=== PATIENT | male | born 1965 | race Caucasian/White ===

== ENCOUNTER 2016-11-03 15:08 | Emergency (ER) | payer OTHER ==
[2016-11-03] MEDS ORDERED: Aspirin Low Dose CHEW TAB* 81 MG PO ONE (15:40)
--- NOTE | 2016-11-03 16:10 | RAD ---
INDICATION: Chest pain COMPARISON: December 12, 2015 TECHNIQUE: An AP portable view obtained at 1545 hours is submitted. FINDINGS: Bones/Soft Tissues: There are no acute bony findings. Cardiomediastinal: The cardiomediastinal silhouette is normal. Lungs: There are no infiltrates. Pleura: There are no pleural effusions. Other: None IMPRESSION: NO ACTIVE DISEASE.
[2016-11-03 16:20] LABS: Hematocrit 43 % (42-52); Hemoglobin 14.6 g/dl (14.0-18.0); Mean Corpuscular HGB Conc 34 g/dl (31-36); Mean Corpuscular Hemoglobin 31 pg (27-31); Mean Corpuscular Volume 91 fL (80-94); Mean Platelet Volume 8 um3 (7.4-10.4); Red Cell Distribution Width 13 % (10.5-15)
[2016-11-03 16:49] LABS: Albumin 4.5 g/dL (3.2-5.2); BUN/Creatinine Ratio 20.7 (8-20); Calcium 9.6 mg/dL (8.6-10.3); EGFR African American 112.9 (>60); EGFR Non-African American 87.8 (>60); Potassium 4.5 mmol/L (3.5-5.0); Total Bilirubin 0.5 mg/dL (0.2-1.0); Total Protein 7.5 g/dL (6.4-8.9)
[2016-11-03 18:27] VITALS: BP 156/85
--- NOTE | 2016-11-04 08:29 | ED ---
An Hill Matthew, scribed for Leland Machado MD on 11/03/16 at 1543 . HPI Chest Pain - HPI Summary HPI Summary: A 50 y/o male presents to the ED with mid sternal chest pain since this afternoon. The pain is described as pressure. His symptoms began after he returned inside from shoveling out the driveway. Prior to the pain, the patient went to his PCP to have a prescription refilled and his BP was running high at that time. He then drank a monster energy drink after leaving his PCP's office. Associated symptoms include lightheadedness - described like being "drunk", and SOB. He induced vomiting to try and relief the pain without success. Ambulation does not make the pain worse. The chest pain pressure increases with deep breaths. The patient also took Maalox without relief. PMHx: HTN, GERD - History of Current Complaint Chief Complaint: EDChestPainROMI Time Seen by Provider: 11/03/16 15:29 Hx Obtained From: Patient Onset/Duration: Started Hours Ago, Atraumatic, Still Present Timing: Constant Initial Severity: Moderate Current Severity: Moderate Pain Intensity: 6 Pain Scale Used: 0-10 Numeric Chest Pain Location: Mid Sternal Chest Pain Radiates: No Character: Pressure/Squeezing Associated Signs and Symptoms: Positive: Chest Pain, Shortness of Breath, Lightheadedness - Allergy/Home Medications Allergies/Adverse Reactions: Allergies Allergy/AdvReac Type Severity Reaction Status Date / Time No Known Allergies Allergy Verified 11/03/16 15:10 PMH/Surg Hx/FS Hx/Imm Hx Cardiovascular History: Reports: Hx Hypertension Respiratory History: Denies: Hx Asthma, Hx Pneumonia, Hx Pulmonary Embolism GI History: Reports: Hx Gastroesophageal Reflux Disease, Hx Ulcer - gerd Sensory History: Reports: Hx Contacts or Glasses - GLASSES Denies: Hx Hearing Aid Opthamlomology History: Reports: Hx Contacts or Glasses - GLASSES - Surgical History Surgery Procedure, Year, and Place: SEVERAL SETS OF TUBES FOR EARS. RIGHT EAR BONE SURGERY. penis scar tissue as child AND AGAIN ADULT. CARDIAC CATH. COLONOSCOPY Hx Anesthesia Reactions: No - Immunization History Date of Tetanus Vaccine: Unknown Infectious Disease History: No Infectious Disease History: Denies: History Other Infectious Disease, Traveled Outside the [place] in Last 30 Days - Family History Known Family History: Positive: Cardiac Disease, Hypertension, Diabetes - Social History Alcohol Use: Rare Substance Use Type: Reports: None Hx Tobacco Use: Yes Smoking Status (MU): Former Smoker Review of Systems Constitutional: Negative Eyes: Negative ENT: Negative Positive: Chest Pain Positive: Shortness Of Breath Gastrointestinal: Negative Genitourinary: Negative Musculoskeletal: Negative Skin: Negative Neurological: Other - lightheadedness Psychological: Normal All Other Systems Reviewed And Are Negative: Yes Physical Exam Vital Signs On Initial Exam: Initial Vitals Temp Pulse Resp BP Pulse Ox 99.0 F 79 18 159/93 100 11/03/16 15:10 11/03/16 15:10 11/03/16 15:10 11/03/16 15:10 11/03/16 15:10 Appearance: Positive: Obese Skin: Positive: Other - nuris appearance Head/Face: Positive: Normal Head/Face Inspection Eyes: Positive: Normal ENT: Positive: Normal ENT inspection Neck: Positive: Supple, Nontender Respiratory/Lung Sounds: Positive: Clear to Auscultation, Breath Sounds Present Cardiovascular: Positive: RRR, Pulses are Symmetrical in both Upper and Lower Extremities Abdomen Description: Positive: Nontender, Soft Bowel Sounds: Positive: Present Musculoskeletal: Positive: Normal Neurological: Positive: Alert, Oriented to Person Place, Time Psychiatric: Positive: Affect/Mood Appropriate Diagnostics - Vital Signs Vital Signs Temp Pulse Resp BP Pulse Ox 11/03/16 15:10 99.0 F 79 18 159/93 100 - Laboratory Lab Results: Lab Results 11/03/16 11/03/16 11/03/16 Range/Units 16:08 16:08 16:08 WBC 8.0 (3.5-10.8) 10^3/ul RBC 4.70 (4.0-5.4) 10^6/ul Hgb 14.6 (14.0-18.0) g/dl Hct 43 (42-52) % MCV 91 (80-94) fL MCH 31 (27-31) pg MCHC 34 (31-36) g/dl RDW 13 (10.5-15) % Plt Count 230 (150-450) 10^3/ul MPV 8 (7.4-10.4) um3 Neut % (Auto) 74.3 (38-83) % Lymph % (Auto) 12.6 L (25-47) % Woods % (Auto) 11.3 H (1-9) % Eos % (Auto) 0.8 (0-6) % Baso % (Auto) 1.0 (0-2) % Absolute Neuts (auto) 5.9 (1.5-7.7) 10^3/ul Absolute Lymphs (auto) 1.0 (1.0-4.8) 10^3/ul Absolute Monos (auto) 0.9 H (0-0.8) 10^3/ul Absolute Eos (auto) 0.1 (0-0.6) 10^3/ul Absolute Basos (auto) 0.1 (0-0.2) 10^3/ul Absolute Nucleated RBC 0 10^3/ul Nucleated RBC % 0 INR (Anticoag Therapy) 0.96 (0.89-1.11) D-Dimer, Quantitative < 200 (Less Than 230) ng/mL Sodium 136 (133-145) mmol/L Potassium 4.5 (3.5-5.0) mmol/L Chloride 101 (101-111) mmol/L Carbon Dioxide 29 (22-32) mmol/L Anion Gap 6 (2-11) mmol/L BUN 19 (6-24) mg/dL Creatinine 0.92 (0.67-1.17) mg/dL Est GFR ( Amer) 112.9 (>60) Est GFR (Non-Af Amer) 87.8 (>60) BUN/Creatinine Ratio 20.7 H (8-20) Glucose 94 (70-100) mg/dL Lactic Acid (0.5-2.0) mmol/L Calcium 9.6 (8.6-10.3) mg/dL Total Bilirubin 0.50 (0.2-1.0) mg/dL AST 16 (13-39) U/L ALT 17 (7-52) U/L Alkaline Phosphatase 46 (34-104) U/L Troponin I 0.00 (<0.04) ng/mL Total Protein 7.5 (6.4-8.9) g/dL Albumin 4.5 (3.2-5.2) g/dL Globulin 3.0 (2-4) g/dL Albumin/Globulin Ratio 1.5 (1-3) 11/03/16 Range/Units 16:08 WBC (3.5-10.8) 10^3/ul RBC (4.0-5.4) 10^6/ul Hgb (14.0-18.0) g/dl Hct (42-52) % MCV (80-94) fL MCH (27-31) pg MCHC (31-36) g/dl RDW (10.5-15) % Plt Count (150-450) 10^3/ul MPV (7.4-10.4) um3 Neut % (Auto) (38-83) % Lymph % (Auto) (25-47) % Woods % (Auto) (1-9) % Eos % (Auto) (0-6) % Baso % (Auto) (0-2) % Absolute Neuts (auto) (1.5-7.7) 10^3/ul Absolute Lymphs (auto) (1.0-4.8) 10^3/ul Absolute Monos (auto) (0-0.8) 10^3/ul Absolute Eos (auto) (0-0.6) 10^3/ul Absolute Basos (auto) (0-0.2) 10^3/ul Absolute Nucleated RBC 10^3/ul Nucleated RBC % INR (Anticoag Therapy) (0.89-1.11) D-Dimer, Quantitative (Less Than 230) ng/mL Sodium (133-145) mmol/L Potassium (3.5-5.0) mmol/L Chloride (101-111) mmol/L Carbon Dioxide (22-32) mmol/L Anion Gap (2-11) mmol/L BUN (6-24) mg/dL Creatinine (0.67-1.17) mg/dL Est GFR ( Amer) (>60) Est GFR (Non-Af Amer) (>60) BUN/Creatinine Ratio (8-20) Glucose (70-100) mg/dL Lactic Acid 1.3 (0.5-2.0) mmol/L Calcium (8.6-10.3) mg/dL Total Bilirubin (0.2-1.0) mg/dL AST (13-39) U/L ALT (7-52) U/L Alkaline Phosphatase (34-104) U/L Troponin I (<0.04) ng/mL Total Protein (6.4-8.9) g/dL Albumin (3.2-5.2) g/dL Globulin (2-4) g/dL Albumin/Globulin Ratio (1-3) Result Diagrams: 11/03/16 16:08 11/03/16 16:08 Lab Statement: Any lab studies that have been ordered have been reviewed, and results considered in the medical decision making process. - Radiology CXR Xray Interpretation: No Acute Changes - IMPRESSION: NO ACTIVE DISEASE. Radiology Interpretation Completed By: Radiologist - EKG 15:18 Cardiac Rate: NL - 77 bpm EKG Rhythm: Sinus Rhythm Chest Pain Course/Dx - Course Assessment/Plan: A 50 y/o male presents to the ED with mid sternal chest pain since this afternoon. The pain is described as pressure. His symptoms began after he returned inside from shoveling out the driveway. The chest pressure increased with deep breaths. Labs were reviewed and the first troponin was measured at 0.00. The patient refused to stay for the second troponin and wanted to go home. EKG showed NSR at 77 bpm. The patients MD Calc score was 13. The patient was discharged home to follow-up with his PCP. - Diagnoses Provider Diagnoses: Chest pain Discharge - Discharge Plan Condition: Stable Disposition: HOME Patient Education Materials: Chest Pain (ED) Referrals: Jackie Leo MD [Primary Care Provider] - 3 Days Additional Instructions: Please follow-up with your primary care physician in 3 days. The documentation as recorded by the An rush Matthew accurately reflects the service I personally performed and the decisions made by , Leland Machado MD.
== END 2016-11-03 18:26 | disposition home or self-care (01) ==
LOC: ED 15:08
DX: R07.9 Chest pain, unspecified (principal); I10 Essential (primary) hypertension; K21.9 Gastro-esophageal reflux disease without esophagitis; Z87.891 Personal history of nicotine dependence
CPT/HCPCS: 36415; 71010; 80053; 83605; 84484; 85025; 85379; 85610; 93005; 99283; A9270-GY

== ENCOUNTER 2017-12-05 20:08 | Observation (INO) | payer OTHER ==
[2017-12-05] MEDS ORDERED: oxyCODONE/Acetamin 5/325 MG* TAB PO ONE (20:52)
[2017-12-05] MEDS ORDERED: fentaNYL* 50 MCG/ML 2 ML VIAL (100 MCG VIAL) IV SLOW PU ONE (21:05)
[2017-12-05] MEDS ORDERED: Metoclopramide IV* 5 MG/ML 2 ML VIAL IV SLOW PU ONE (21:06)
[2017-12-05] MEDS ORDERED: Midazolam* 1 MG/ML 5 ML VIAL (5 MG) ONE (21:19)
[2017-12-05] MEDS ORDERED: fentaNYL* 50 MCG/ML 2 ML VIAL (100 MCG VIAL) ONE (21:20)
[2017-12-05] MEDS ORDERED: Naloxone* 0.4 MG/ML 1 ML VIAL ONE (21:21)
--- NOTE | 2017-12-05 21:28 | RAD ---
INDICATION: Right knee injury. TECHNIQUE: 2 views of the right knee were obtained. FINDINGS: There is dislocation of the knee with the tibia displaced anterior relative to the femur. The bones are slightly overriding. In addition there is a probable fracture of the fibular head which is not well-defined. There are also 2 bony densities which project lateral to the lateral femoral condyle measuring 1.6 and 1.4 cm each most consistent with fracture fragments age indeterminate. IMPRESSION: 1. DISLOCATION OF THE KNEE DESCRIBED. 2. PROBABLE FRACTURE OF THE FIBULAR HEAD NOT WELL-DEFINED. 3. THERE ARE 2 FRACTURE FRAGMENTS PRESENT LATERAL TO THE LATERAL FEMORAL CONDYLE, AGE INDETERMINATE.
--- NOTE | 2017-12-05 21:30 | RAD ---
INDICATION: Right lower leg injury. TECHNIQUE: 2 views of the right lower leg were obtained. FINDINGS: There is dislocation of the knee with the distal femur and tibia overriding. There are 2 bony densities lateral to the lateral femoral condyle most consistent with fracture fragments, age indeterminate. IMPRESSION: 1. DISLOCATION OF THE KNEE. 2. NO ADDITIONAL FRACTURE IS SEEN.
[2017-12-05 21:46] LABS: ABS Basophils 0.1 10^3/ul (0-0.2); ABS Eosinophils 0 10^3/ul (0-0.6); ABS Lymphocytes 0.9 10^3/ul (1.0-4.8); ABS Monocytes 0.7 10^3/ul (0-0.8); ABS Neutrophils 9.8 10^3/ul (1.5-7.7); ABS Nucleated RBC 0 10^3/ul; Eosinophil % 0.3 % (0-6); Hematocrit 41 % (42-52); Hemoglobin 14.2 g/dl (14.0-18.0); Lymphocyte % 7.5 % (25-47); Mean Corpuscular HGB Conc 35 g/dl (31-36); Mean Corpuscular Hemoglobin 32 pg (27-31); Mean Corpuscular Volume 91 fL (80-94); Mean Platelet Volume 7.8 um3 (7.4-10.4); Nucleated Red Blood Cells % 0; Platelet Count 262 10^3/ul (150-450); Red Cell Distribution Width 14 % (10.5-15); White Blood Count 11.5 10^3/ul (3.5-10.8)
[2017-12-05 22:00] LABS: INR 0.96 (0.77-1.02)
[2017-12-05 22:03] LABS: EGFR Non-African American 77.6 (>60)
[2017-12-05] MEDS ORDERED: Iohexol 350* (CONTRAST) 500 ML MDV IV ONE (22:36)
[2017-12-05 23:06] LABS: Urine Appearance Clear; Urine Blood Negative (Negative); Urine Color Yellow; Urine Ketones Negative (Negative); Urine Protein Negative (Negative); Urine Specific Gravity 1.024 (1.010-1.030); Urine Urobilinogen Negative (Negative)
[2017-12-06] MEDS ORDERED: Iohexol 350* (CONTRAST) 500 ML MDV IV ONE (01:31)
[2017-12-06] MEDS ORDERED: oxyCODONE/Acetamin 5/325 MG* TAB PO PRN (01:34)
--- NOTE | 2017-12-06 05:58 | ED ---
Ken Hill Thomas, scribed for Augustin Lombardo MD on 12/05/17 at 2101 . Lower Extremity - HPI Summary HPI Summary: The patient is a 51 year old male complaining of pain and deformity to his right knee status post slipping and falling on water today at 18:30. He denies pain to his right foot and right hip. He last ate at approximately 18:00. - History of Current Complaint Chief Complaint: EDExtremityLower Stated Complaint: RT LEG INJURY Time Seen by Provider: 12/05/17 20:47 Hx Obtained From: Patient Mechanism Of Injury: Fall From A Standing Position Onset/Duration: Still Present Severity Currently: Moderate Pain Intensity: 7 Pain Scale Used: 0-10 Numeric Timing: Constant Location: Is Discrete @ - right knee Associated Signs And Symptoms: Positive: Negative Aggravating Factor(s): Movement Alleviating Factor(s): Nothing - Allergies/Home Medications Allergies/Adverse Reactions: Allergies Allergy/AdvReac Type Severity Reaction Status Date / Time No Known Allergies Allergy Verified 12/05/17 20:39 Home Medications: Home Medications Betamethasone Dip 0.05% ON(NF) [Betamethasone Dipr 0.05% OINT(NF)] 1 applic TOPICAL DAILY 12/05/17 [History Confirmed 12/05/17] Ibuprofen TAB* [Motrin TAB* 800 MG] 800 mg PO TID PRN 12/05/17 [History Confirmed 12/05/17] Lisinopril TAB* [Prinivil TAB*] 5 mg PO DAILY 12/05/17 [History Confirmed ] Pantoprazole TAB (NF) [Protonix TAB (NF)] 40 mg PO DAILY 12/05/17 [History Confirmed 12/05/17] Sertraline* [Zoloft*] 50 mg PO DAILY 12/05/17 [History Confirmed 12/05/17] PMH/Surg Hx/FS Hx/Imm Hx Cardiovascular History: Reports: Hx Hypertension Respiratory History: Denies: Hx Asthma, Hx Pneumonia, Hx Pulmonary Embolism GI History: Reports: Hx Gastroesophageal Reflux Disease, Hx Ulcer - gerd Sensory History: Reports: Hx Contacts or Glasses - GLASSES Denies: Hx Hearing Aid Opthamlomology History: Reports: Hx Contacts or Glasses - GLASSES - Surgical History Surgery Procedure, Year, and Place: SEVERAL SETS OF TUBES FOR EARS. RIGHT EAR BONE SURGERY. penis scar tissue as child AND AGAIN ADULT. CARDIAC CATH. COLONOSCOPY Hx Anesthesia Reactions: No - Immunization History Date of Tetanus Vaccine: Unknown Infectious Disease History: No Infectious Disease History: Denies: History Other Infectious Disease, Traveled Outside the [place] in Last 30 Days - Family History Known Family History: Positive: Cardiac Disease, Hypertension, Diabetes - Social History Alcohol Use: Rare Substance Use Type: Reports: None Hx Tobacco Use: Yes Smoking Status (MU): Former Smoker Review of Systems Negative: Fever Positive: Other - Right knee pain; NEGATIVE: right hip pain, right knee pain All Other Systems Reviewed And Are Negative: Yes Physical Exam - Summary Physical Exam Summary: VITAL SIGNS: Reviewed. GENERAL: Patient is a morbidly obese male who is lying comfortable in the stretcher. Patient is not in any acute respiratory distress. HEAD AND FACE: No signs of trauma. No ecchymosis, hematomas or skull depressions. No sinus tenderness. EYES: PERRLA, EOMI x 2, No injected conjunctiva, no nystagmus. EARS: Hearing grossly intact. Ear canals and tympanic membranes are within normal limits. MOUTH: Oropharynx within normal limits. NECK: Supple, trachea is midline, no adenopathy, no JVD, no carotid bruit, no c- spine tenderness, neck with full ROM. CHEST: Symmetric, no tenderness at palpation LUNGS: Clear to auscultation bilaterally. No wheezing or crackles. CVS: Regular rate and rhythm, S1 and S2 present, no murmurs or gallops appreciated. ABDOMEN: Soft, non-tender. No signs of distention. No rebound no guarding, and no masses palpated. Bowel sounds are normal. EXTREMITIES: He has tenderness to the right knee. He has deformity of the knee. He has good dorsalis pedis pulses and good posterior tibialis pulses. Otherwise , FROM in all other major joints, no edema, no cyanosis or clubbing. NEURO: Alert and oriented x 3. No acute neurological deficits. Speech is normal and follows commands. SKIN: Dry and warm Triage Information Reviewed: Yes Vital Signs On Initial Exam: Initial Vitals Temp Pulse Resp BP Pulse Ox 98.5 F 83 13 183/96 98 12/05/17 20:25 12/05/17 20:25 12/05/17 20:25 12/05/17 20:25 12/05/17 20:25 Vital Signs Reviewed: Yes Procedures - Procedure Summary Procedure Summary: MODERATE SEDATION PROCEDURE NOTE: The patient signed consent. We followed the moderate sedation protocol. The patient was given Versed 5mg and Fentanyl 100 mg. Prior to this, he was given Reglan 10 mg. Moderate sedation was achieved for the reduction. There was no complications with the moderate sedation. No reversal agent was used. REDUCTION OF THE KNEE PROCEDURE NOTE: Traction and counter-traction was used. The right knee was reduced. Post- reduction x-ray shows good alignment of an avulsion fracture of the proximal fibula. IV Access Procedure Note: IV 18 gauge using ultrasound guidance. Placed with the left bacilic vein. Diagnostics - Vital Signs Vital Signs Temp Pulse Resp BP Pulse Ox 12/05/17 20:25 98.5 F 83 13 183/96 98 - Laboratory Result Diagrams: 12/05/17 21:30 12/05/17 23:43 Lab Statement: Any lab studies that have been ordered have been reviewed, and results considered in the medical decision making process. - Radiology Knee XR 20:51 Xray Interpretation: Positive (See Comments) - IMPRESSION: 1. DISLOCATION OF THE KNEE DESCRIBED. 2. PROBABLE FRACTURE OF THE FIBULAR HEAD NOT WELL- DEFINED. 3. THERE ARE 2 FRACTURE FRAGMENTS PRESENT LATERAL TO THE LATERAL FEMORAL CONDYLE, AGE INDETERMINATE. Dr. Lombardo has reviewed this report. Radiology Interpretation Completed By: Radiologist Lower Leg Right XR 20:52 Xray Interpretation: Positive (See Comments) - IMPRESSION: 1. DISLOCATION OF THE KNEE. 2. NO ADDITIONAL FRACTURE IS SEEN. Dr. Lombardo has reviewed this report. Radiology Interpretation Completed By: Radiologist Post-reduction Knee XR Xray Interpretation: Positive (See Comments) - There is good alignment. Avulsion fracture of the fibular head with two small bone fragments. Radiology Interpretation Completed By: ED Physician - CT CTA Lower Extremity CT Interpretation: Positive (See Comments) - Impression: Patent main visualized arteries of right lower extremity through level of foot without evidence for pseudoaneurysm, dissection, or active contrast extravasation. Acute comminated fracture fibular head with fragments displaced 6 cm superiorly into lateral knee soft tissues, which are swollen. Dr. Lombardo has reviewed this report. CT Interpretation Completed By: Radiologist Lower Extremity Course/Dx - Course Assessment/Plan: The patient is a 51 year old male complaining of pain and deformity to his right knee status post slipping and falling on water today at 18:30. In the ED course, the patient was given Percocet. A Knee XR was obtained that shows 1. DISLOCATION OF THE KNEE. 2. PROBABLE FRACTURE OF THE FIBULAR HEAD NOT WELL-DEFINED. 3. THERE ARE 2 FRACTURE FRAGMENTS PRESENT LATERAL TO THE LATERAL FEMORAL CONDYLE, AGE INDETERMINATE. Moderate sedation was done, and the ankle was reduced. Post-reduction Knee XR shows good alignment and avulsion fracture of the fibular head with two small bone fragments. I obtained IV access using ultrasoudn guidance. I consulted with Dr. Addison, orthopedics, who tells me that the patient needs an angiogram of the right lower extremity to rule out vascular injury. Dr. Addison [place] [facility] - Diagnoses Provider Diagnoses: Dislocation of right knee - Physician Notifications Discussed Care Of Patient With: Lise Addison Time Discussed With Above Provider: 22:34 Instructed by Provider To: Other - I consulted with Dr. Addison, orthopedics, who tells me that the patient needs an angiogram of the right lower extremity to rule out vascular injury. Dr. Addison [place] [facility]charge - Sign-Out/Discharge Documenting (check all that apply): Discharge - The patient is admitted [place] [facility] [place] Addison - Discharge Plan Condition: Stable Disposition: ADMITTED TO [facility] documentation as recorded by the Ken rush Thomas accurately reflects the service I personally performed and the decisions made by me, Augustin Lombardo MD.
[2017-12-06 07:35] VITALS: BP 148/64
--- NOTE | 2017-12-06 07:56 | RAD ---
HISTORY: Post reduction COMPARISONS: December 05, 2017 at 8:00 PM VIEWS: 4, frontal, lateral, and axial views of the right knee at 9:03 PM. FINDINGS: BONE DENSITY: Normal. BONES: Again noted is a probable nondisplaced fracture of the fibular head. Again noted are fragments lateral to the femoral condyle which may reflect an age-indeterminate avulsion injury. JOINTS: There is no arthropathy. ALIGNMENT: There is been interval reduction of the femoral-tibial dislocation. The alignment is near-anatomic. SOFT TISSUES: Unremarkable. OTHER FINDINGS: None. IMPRESSION: 1. INTERVAL REDUCTION OF RIGHT KNEE DISLOCATION. 2. PROBABLE FRACTURE OF THE FIBULAR HEAD. 3. AGAIN NOTED ARE BONE FRAGMENTS LATERAL TO THE FEMORAL CONDYLE SYSTEM WITH AN AGE-INDETERMINATE AVULSION INJURY.
--- NOTE | 2017-12-06 08:18 | RAD ---
INDICATION: Dislocation right knee. Evaluate for vascular injury COMPARISON: Right knee 2017 TECHNIQUE: Axial scans were obtained from the mid thigh through ankle following intravenous administration of 100 mL Omnipaque [address] angiographic technique. Coronal and sagittal reconstructed images were acquired. 3-D 5 rendered images were obtained. FINDINGS: There are multiples tiny avulsion fractures from the fibular head. There are no additional acute bony findings. There are coarse, corticated ossific fragments in the soft tissues of the lateral knee at the condylar level which could be related to prior trauma. The knee articulates normally. There may be cruciate ligaments injury which would be better evaluated by MR imaging as indicated There is no significant joint effusion. There is diffuse edema in the soft tissues most prominent about the avulsion fractures of the fibular head. There is a subcutaneous hematoma about the lateral joint line There is suboptimal arterial opacification as the timing is such that there is significant contrast within the venous system. There is no definitive evidence of acute arterial thrombus, dissection, or aneurysm. Consider a repeat examination and/or Doppler interrogation if there is persistent clinical concern of an arterial injury. Unequal mixing of the contrast within the deep venous structures precludes exclusion of deep venous thrombosis. Sonographic evaluation could be performed as indicated. IMPRESSION: 1. Satisfactory reduction. There are multiple tiny avulsion fractures from the fibular head. Additional soft tissue calcifications or ossifications about the lateral joint line likely related to a remote injury. 2. Subcutaneous edema with small hematoma about the lateral joint line. 3. Suboptimal arterial opacification. No definitive acute arterial injury (see above). 4. Unequal mixing of contrast within the deep venous system. Suggest Doppler interrogation of the venous system if there is concern of deep venous thrombosis.
--- NOTE | 2017-12-06 12:59 | HP ---
AMENDED REPORT NOW INCLUDES COSIGNER DESIGNATION - ESIGNED BEFORE ADJUSTMENT ADMISSION HISTORY AND PHYSICAL: DATE OF ADMISSION: 12/06/18 ATTENDING PROVIDER: Dr. Addison * (DICTATED BY SEVEN ADRIAN) HISTORY OF PRESENT ILLNESS: He presented to the emergency room last night complaining of pain and deformity of his right knee after slipping and falling on water from his bathtub. He states that the fall occurred without any chest pain, shortness of breath, or dizziness. He did not have any pain of his right foot or right hip. He was admitted by Orthopedics and he was seen in the morning of 12/06/17, at which time, he reported that he had no pain without any pain medication. He was placed in an immobilizer after the emergency room reduced the knee and postreduction x-rays were satisfactory. PAST MEDICAL HISTORY: Includes hypertension, acid reflux. PAST SURGICAL HISTORY: Includes ear tubes, penis surgery as a child and again as an adult, cardiac catheterization. The patient tolerated the anesthesia well without any history of adverse side effects. FAMILY HISTORY: Cardiac disease, hypertension, diabetes. SOCIAL HISTORY: Rare alcohol use, former smoker, does not use any drugs. REVIEW OF SYSTEMS: General: No fever, no chills. Had no headache, no change in vision. Heart: No chest pain. No irregular beats. Respiratory: No shortness of breath. No cough. GI: No abdominal pain, nausea, vomiting, and diarrhea. Musculoskeletal: Right knee pain. No other extremity or joint pain. Neuro: No decreased sensation, no numbness, no paresthesias reported. Hematology: No history of blood clot known. PHYSICAL EXAMINATION GENERAL: The patient is well appearing, lying comfortably in bed with an immobilizer in place on the knee. VITAL SIGNS: Temperature 97.9, pulse rate 95, respiratory rate 18, oxygen saturation 98%, blood pressure 148/64. HEENT: Head: Normocephalic, atraumatic. Eyes: EOMI. LUNGS: Clear to auscultation bilaterally. CARDIO: S1, S2. No murmur appreciated. ABDOMEN: Bowel sounds normoactive, soft and nontender without any guarding or rigidity. EXTREMITIES: The patient has an immobilizer in place on his right lower extremity. He is mildly tender over the fibular head. There is no knee effusion. There is no deformity at the knee. The patient moves his left lower extremity well at the ankle, hip, and knee. He moves the right lower extremity well at the ankle with dorsiflexion and plantar flexion intact and at the hip with flexion intact. Bilateral upper extremities move well. He is nontender to palpation throughout his extremities aside from the right knee. NEURO: The patient is alert, calm, cooperative, normal speech. Sensation is intact throughout the right lower extremity to light touch. VASCULAR: Right DP and PT pulse are 2+. Popliteal pulse difficult to palpate due to body habitus, but strong regular pulse with Doppler. Capillary refill is less than 2 seconds distally. Bilateral calves are supple and nontender without erythema, edema, or palpable cords. Negative Homans' sign bilaterally. SKIN: Warm and dry. Right knee is not hot. There is no skin breakdown. There is no open fracture. There is no ecchymosis. DIAGNOSTIC STUDIES/LAB DATA: White blood cell count 11.5, hemoglobin 14.2, hematocrit 41. Knee x-ray done in the emergency room showed dislocation of the knee, reduction was performed, repeat x-ray showed satisfactory reduction of the right knee dislocation as well as probable fracture of the fibular head. Lower extremity CTA was completed, which showed satisfactory reduction and multiple tiny avulsion fractures of the fibular head, subcutaneous edema with a small hematoma about the lateral joint line, suboptimal arterial opacification noticed in the acute arterial injury on equal mixing of contrast within the deep venous systems. ASSESSMENT: Right knee dislocation, status post reduction, fibular head avulsion fracture. PLAN: The patient will be nonweightbearing of his right lower extremity. I anticipate he will use crutches to ambulate. He will be seen by Physical Therapy in order to address safety on crutches. He will keep the immobilizer in place and he will follow up in our office either on Sunday or Sunday with Dr. Reynaga. SEVEN ADRIAN [id number]/[facility] #: [id number] MTDMikey
--- NOTE | 2017-12-06 21:49 | DS ---
DISCHARGE SUMMARY: DATE OF ADMISSION: 12/04/17 DATE OF DISCHARGE: 12/06/17 ATTENDING PROVIDER: Lise Addison MD * (DICTATED BY SEVEN ADRIAN) HISTORY: Mr. Velázquez presented to the emergency room last night complaining of pain and deformity in his right knee after slipping and falling on water from his bath tub, which resulted in a right knee dislocation. Knee was reduced in the emergency room and patient was seen this morning by Orthopedics. HOSPITAL COURSE: The patient was admitted to [facility] on 12/05/17 with a right knee dislocation, which was reduced in the emergency room. He was placed in an immobilizer and post reduction films were completed with satisfactory reduction. He also had a CTA, status post reduction that demonstrates satisfactory reduction. Multiple tiny avulsion fractures from the fibular head. Subcutaneous edema with small hematoma about the lateral joint line. Suboptimal arterial opacification, no definitive acute arterial injury. When he was seen this morning, he was awake, alert, in no acute distress. His right knee was in an immobilizer. He was able to wiggle his toes, dorsiflex and plantarflex his ankle. He was also able to flex the leg at the hip. Removal of the immobilizer demonstrated skin without any breakdown. No obvious effusion of the knee joint. No obvious deformity. Patient's calves were supple and nontender bilaterally without erythema or edema and negative Homans sign and he was in no pain. PHYSICAL EXAMINATION: His vital signs showed temperature 97.8, heart rate 95, respiratory rate 18, oxygen saturation 98, blood pressure 148/64. Please note that on exam his vascular exam demonstrated 2+ dorsalis pedis and posterior tibial pulses and popliteal pulse was strong and regular with Doppler. DISCHARGE MEDICATIONS: 1. Ibuprofen 800 mg p.o. t.i.d. p.r.n. 2. Sertraline 50 mg p.o. daily. 3. Pantoprazole 40 mg p.o. daily. 4. Lisinopril 5 mg p.o. daily. 5. Betamethasone dip 0.05 topical application daily. DISCHARGE PLAN: The patient will be nonweightbearing on the right lower extremity. He will keep his immobilizer in place all time aside from hygiene needs. He knows that he is not to walk on or bend his knee. He will use a walker to ambulate as he was not steady using crutches. Ibuprofen 600 mg every 6 hours or 800 mg every 8 hours, not to take 3000 mg per day. Follow up with Dr. Reynaga at [facility] Sunday or Sunday. Go to the emergency room with any color change, loss of sensation, severe pain of right lower extremity, call the orthopedic office with any concerns. SEVEN ADRIAN [id number]/[facility] #: [id number] MTDMikey
== END 2017-12-06 11:45 | disposition home or self-care (01) ==
LOC: ED 20:08 → SSU 22:44
PROVIDERS: ADMIT Orthopaedic Surgery; ATTEND Orthopaedic Surgery
DX: S83.104A Unspecified dislocation of right knee, initial encounter (principal); S82.491A Other fracture of shaft of right fibula, initial encounter for closed fracture; W01.0XXA Fall on same level from slipping, tripping and stumbling without subsequent striking against object, initial encounter; Y92.002 Bathroom of unspecified non-institutional (private) residence as the place of occurrence of the external cause; I10 Essential (primary) hypertension; Z79.899 Other long term (current) drug therapy; K21.9 Gastro-esophageal reflux disease without esophagitis; E66.01 Morbid (severe) obesity due to excess calories; Z87.891 Personal history of nicotine dependence
CPT/HCPCS: 27550; 36415; 73706; 80053; 81003; 84132; 84450; 85025; 85610; 85730; 86850; 86900; 86901; 96374; 96375; 99285; G0378; J2250; J2310; J2765; J3010; Q9967